=== PATIENT | female | born 1960 | race Caucasian/White ===

== ENCOUNTER 2020-06-20 12:18 | Emergency (ER) | payer OTHER, SELFPAY ==
[2020-06-20 12:24] VITALS: BP 153/90; PULSE 108; RESP 18; TEMP 36.7; O2SAT 100
[2020-06-20] MEDS: ONDANSETRON HCL ODT 4 MG TABLET PO (13:40)
[2020-06-20] MEDS: HYDROmorphone HCL INJ (*CRX) 1 MG/ML SYR IM (13:41)
--- NOTE | 2020-06-20 13:41 | ED.GENADULT ---
HPI - General Adult General Chief complaint: Unspecified Stated complaint: pain r/t lung mass Time Seen by Provider: 06/20/20 13:06 Source: patient and family Mode of arrival: ambulatory Limitations: no limitations History of Present Illness HPI narrative: Patient 60 years old white female came to the emergency room requesting a pain shot because of a lung mass. Patient supposed to go to [facility] for admission, had extensive work-up at the urgent care today. She declined to go to [facility], also declined to get any further evaluation in our emergency room. She just wants a pain shot and then go home. Related Data Home Medications Medication Instructions Recorded Confirmed albuterol sulfate INHALATION 06/20/20 06/20/20 docusate sodium [DOK] PO 06/20/20 hydroxyzine HCl 06/20/20 quetiapine 06/20/20 rosuvastatin mg 06/20/20 tramadol mg 06/20/20 Allergies Allergy/AdvReac Type Severity Reaction Status Date / Time ketorolac [From Toradol] Allergy Unknown Verified 06/20/20 12:57 Sulfa (Sulfonamide Allergy Unknown Verified 06/20/20 12:56 Antibiotics) tramadol Allergy Unknown Verified 06/20/20 12:56 Review of Systems Review of Systems: Narrative: CONSTITUTIONAL: Denies fever, chills, or sweats. EYES: Denies visual changes, redness, or discharge. ENT: Denies rhinorrhea, congestion, sore throat, or otalgia. CARDIOVASCULAR: Denies chest pain, palpitations, or edema. RESPIRATORY: Denies cough or dyspnea. GASTROINTESTINAL: Denies abdominal pain, nausea, vomiting, or diarrhea. GENITOURINARY: Denies dysuria or hematuria. SKIN: Denies rash or itching. MUSCULOSKELETAL: Denies back pain, joint pain, or myalgia. NEUROLOGIC: Denies headache, numbness, or weakness. PSYCHIATRIC: Denies anxiety or depression. [facility] Past Medical History Medical History (Updated 06/20/20 @ 13:48 by Vandana Broussard MD) Lung mass Social History Social History Gender identity (if verbalized by the patient): Female Exam Narrative: Exam Narrative: General appearance: Well-developed, malnourished, the at the bedside Skin: Normal color Head: Normocephalic, nontraumatic Eyes: Clear conjunctiva ENT: Oropharynx normal, ears normal, nose normal Neck: Supple, nontender Chest and respiratory: Airway patent, no respiratory distress, no accessory muscle use Heart: Regular rate/rhythm Abdomen: Soft, nontender, no organomegaly, quiet bowel sounds Musculoskeletal: Normal range of motion, nontender back Neurologic: Alert and oriented ?3, [employer] is normal as tested, no gross motor deficit Course Course Emergency Course: Stable Vital Signs Vital signs: Vital Signs Temperature 36.7 C 06/20/20 12:24 Pulse Rate 108 H 06/20/20 12:24 Respiratory Rate 18 06/20/20 12:24 Blood Pressure 153/90 H 06/20/20 12:24 Pulse Oximetry 100 06/20/20 12:24 Temperature 36.7 C 06/20/20 12:24 Pulse Rate 108 H 06/20/20 12:24 Respiratory Rate 18 06/20/20 12:24 Blood Pressure 153/90 H 06/20/20 12:24 Pulse Oximetry 100 06/20/20 12:24 Medical Decision Making MDM Narrative Medical decision making narrative: Patient had history of blindness with persistent chest pain. Came to our emergency room requesting a pain shot without any further evaluation. Differential Diagnosis Differential Diagnosis: Pain management Vital Signs Vital Signs: Vital Signs Temperature 36.7 C 06/20/20 12:24 Pulse Rate 108 H 06/20/20 12:24 Respiratory Rate 18 06/20/20 12:24 Blood Pressure 153/90 H 06/20/20 12:24 Pulse Oximetry 100 06/20/20 12:24 Temperature 36.7 C 06/20/20 12:24 Pulse Ra
[2020-06-20 13:54] VITALS: BP 138/88; PULSE 88; RESP 20; O2SAT 99
== END 2020-06-20 13:57 | disposition home or self-care (01) ==
PROVIDERS: Emergency Provider Emergency Medicine
DX: R07.9 Chest pain, unspecified (principal)
CPT/HCPCS: 96372; 99283; A9270; J1170